=== PATIENT | female | born 1990 | race Caucasian/White ===

== ENCOUNTER 2017-01-26 16:37 | Emergency (ER) | payer OTHER ==
[2017-01-26 16:58] VITALS: BP 115/60; PULSE 95; RESP 16; TEMP 98.6; O2SAT 94
--- NOTE | 2017-01-26 17:04 | EDPHY ---
H & P Time Seen by Provider: 01/26/17 16:53 HPI/ROS: CHIEF COMPLAINT: Laceration left hand HISTORY OF PRESENT ILLNESS: 26-year-old female presents to the emergency department by private vehicle with a laceration to the palm of her left hand at the base of the 5th finger from an injury that she sustained 48 hours ago. The patient states on Friday afternoon she cut her left 5th finger on a jagged car window. She denies any retained foreign body. She believes her tetanus shot is current. She is right-hand dominant. ROS: Denies numbness or tingling in her fingers, retained foreign body or other injury. 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 No evidence of retained foreign body. No redness or swelling or signs of infection. She has normal sensation to light touch with normal 2 point discrimination. No palpable bony tenderness. The other fingers appear uninjured. Constitutional: Initial Vital Signs Temperature (C) 37 C 01/26/17 16:45 Heart Rate 95 01/26/17 16:45 Respiratory Rate 16 01/26/17 16:45 Blood Pressure 115/60 01/26/17 16:45 O2 Sat (%) 94 01/26/17 16:45 O2 Delivery Mode Room Air Allergies/Adverse Reactions: No Known Allergies Allergy (Verified 01/26/17 16:45) Home Medications: Medication Instructions Recorded NK [No Known Home Meds] 01/26/17 MDM/Departure - MDM ED Course/Re-evaluation: 26-year-old female presents with laceration to the left hand from 48 hours ago. I discuss the risk of infection associated with closing the wound now. She agrees with not suturing the wound. There is no signs or symptoms of infection. I do not think antibiotics are indicated. Her wound was cleansed and dressed and she was given a splint for comfort. - Depart Disposition: Home, Routine, Self-Care Clinical Impression: laceration left hand, healing Condition: Good Instructions: Acute Wounds (ED) Additional Instructions: Since your wound is nearly 48 hours old, there is great risk of infection if your wound would be closed with sutures now. Keep the wound dry, clean and protected. Ibuprofen 400 mg every 8 hours as needed for pain. Cover it loosely with a bandage to help air hit the wound to allow it to heal. Do not go any kind of open water until the wound has completely healed. Return to the emergency department if you notice any signs or symptoms of infection such as redness, swelling, increased pain, fever, purulent drainage. Referrals: Clau Velasco MD [Medical Doctor] - 2-3 days, if not improved ( Primary care provider senior business consultant)
== END 2017-01-26 17:25 | disposition home or self-care (01) ==
DX: S61.412A Laceration without foreign body of left hand, initial encounter (principal); F17.200 Nicotine dependence, unspecified, uncomplicated; W25.XXXA Contact with sharp glass, initial encounter